=== PATIENT | female | born 1985 | race Caucasian/White ===

== ENCOUNTER 2017-02-14 11:19 | Emergency (ER) | payer MEDICAID ==
[2017-02-14] MEDS ORDERED: Ondansetron 4 MG/2 ML SDV IVPUSH ONE (11:40)
[2017-02-14] MEDS ORDERED: HYDROmorphone 0.5 MG/0.5 ML Syringe IVPUSH ONE (11:40)
[2017-02-14] MEDS ORDERED: Sodium Chloride 0.9% 1,000 ML IV SCH (11:45)
--- NOTE | 2017-02-14 12:27 | EDM.PDOC ---
ED HPI GENERAL MEDICAL PROBLEM - General Chief Complaint: Flank Pain Stated Complaint: ABDOMINAL PAIN Time Seen by Provider: 02/14/17 11:35 Source of Information: Reports: Patient History Limitations: Reports: No Limitations - History of Present Illness INITIAL COMMENTS - FREE TEXT/NARRATIVE: pt arrived with rt flank pain. She has been having pain and doing some vomiting. 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: , Spontaneous Neurological History: Reports: Migraines Psychiatric History: Reports: Depression - Past Surgical History HEENT Surgical History: Reports: Tonsillectomy Female Surgical History: Reports: Tubal Ligation Social & Family History - Tobacco Use Smoking Status *Q: Never Smoker Second Hand Smoke Exposure: No - Caffeine Use Caffeine Use: Reports: None - Recreational Drug Use Recreational Drug Use: No ED ROS GENERAL - Review of Systems Review Of Systems: See Below Constitutional: Reports: No Symptoms HEENT: Reports: No Symptoms Respiratory: Reports: No Symptoms Cardiovascular: Reports: No Symptoms Endocrine: Reports: No Symptoms GI/Abdominal: Reports: Abdominal Pain, Other (pt has pain in rt flank and rt lower abdoman. ) : Reports: Flank Pain Musculoskeletal: Reports: No Symptoms Skin: Reports: No Symptoms ED EXAM, GI/ABD - Physical Exam Exam: See Below Text/Narrative:: pt arrived with rt sided pain in the rt flank and rt lower abdoman. Exam Limited By: No Limitations General Appearance: Alert, Anxious Eyes: Bilateral: Normal Appearance, EOMI Ears: Normal TMs Nose: Normal Inspection Throat/Mouth: Normal Inspection Head: Atraumatic Neck: Normal Inspection Respiratory/Chest: No Respiratory Distress Cardiovascular: Regular Rate, Rhythm GI/Abdominal: Soft, Tenderness, Other (pt is tender in the rt flank area and rt lower abdoman, ) (Female) Exam: Deferred Rectal (Female) Exam: Deferred Back Exam: Normal Inspection Extremities: Normal Inspection Neurological: Alert, Oriented, Normal Cognition Course - Vital Signs Last Recorded V/S: Last Vital Signs Temp 36.4 C 02/14/17 13:51 Pulse 94 02/14/17 13:51 Resp 14 02/14/17 13:51 BP 157/92 H 02/14/17 13:51 Pulse Ox 97 02/14/17 13:51 - Orders/Labs/Meds Orders: Active Orders 24 hr Category Date Time Status Acetaminophen/HYDROcodone [[place] 325-5 MG] Med 02/14/17 14:00 Once 1 tab PO ONETIME ONE Iopamidol [Isovue-300 (61%)] Med 02/14/17 12:38 Active 123 ml IV . DIRECTED PRN Sodium Chloride 0.9% [Normal Saline] 1,000 ml Med 02/14/17 11:45 Active IV ASDIRECTED Sodium Chloride 0.9% [Normal Saline] 82 ml Med 02/14/17 12:45 Active IV ASDIRECTED Medication Orders Hydrocodone Bitart/Acetaminophen ([place] 325-5 Mg) 1 tab PO ONETIME ONE Stop: 02/14/17 14:01 Sodium Chloride (Normal Saline) 1,000 mls @ 999 mls/hr IV ASDIRECTED SAMANTHA Last Admin: 02/14/17 12:38 Dose: 999 mls/hr Sodium Chloride (Normal Saline) 82 mls @ 3.5 mls/sec IV ASDIRECTED SAMANTHA Last Admin: 02/14/17 12:51 Dose: 3.5 mls/sec Iopamidol (Isovue-300 (61%)) 123 ml IV . DIRECTED PRN PRN Reason: RADIOLOGY EXAM Stop: 02/15/17 12:39 Last Admin: 02/14/17 12:51 Dose: 123 ml Labs: Laboratory Tests 02/14/17 02/14/17 02/14/17 Range/Units 11:45 11:45 12:19 WBC 6.5 (4.5-11.0) K/uL RBC 5.21 (3.30-5.50) M/uL Hgb 15.0 (12.0-15.0) g/dL Hct 42.8 (36.0-48.0) % MCV 82 (80-98) fL MCH 29 (27-31) pg MCHC 35 (32-36) % Plt Count 238 (150-400) K/uL Neut % (Auto) 75 H (36-66) % Lymph % (Auto) 19 L (24-44) % [place] % (Auto) 5 (2-6) % Eos % (Auto) 1 L (2-4) % Baso % (Auto) 0 (0-1) % Sodium 141 (140-148) mmol/L Potassium 3.7 (3.6-5.2) mmol/L Chloride 109 H (100-108) mmol/L Carbon Dioxide 20 L (21-32) mmol/L Anion Gap 15.7 H (5.0-14.0) mmol/L BUN 8 (7-18) mg/dL Creatinine 0.8 (0.6-1.0) mg/dL Est Cr Clr Drug Dosing 92.53 mL/min Estimated GFR (MDRD) > 60 (>60) Glucose 94 (74-106) mg/dL Calcium 8.8 (8.5-10.1) mg/dL Total Bilirubin 0.4 (0.2-1.0) mg/dL AST 11 L (15-37) U/L ALT 16 (12-78) U/L Alkaline Phosphatase 73 (46-116) U/L C-Reactive Protein (0.0-0.3) mg/dL Total Protein 7.7 (6.4-8.2) g/dL Albumin 4.1 (3.4-5.0) g/dL Globulin 3.6 H (2.3-3.5) g/dL Albumin/Globulin Ratio 1.1 L (1.2-2.2) Urine Color Yellow Urine Appearance Slightly cloudy Urine pH 6.5 (4.5-8.0) Ur Specific [place] 1.015 (1.008-1.030) Urine Protein Negative (NEGATIVE) mg/dL Urine Glucose (UA) Normal (NEGATIVE) mg/dL Urine Ketones 50 H (NEGATIVE) mg/dL Urine Occult Blood Large (NEGATIVE) Urine Nitrite Negative (NEGATIVE) Urine Bilirubin Negative (NEGATIVE) Urine Urobilinogen 1 (NORMAL) mg/dL Ur Leukocyte Esterase Large (NEGATIVE) Urine RBC 10-20 H (0-5) Urine WBC 10-20 H (0-5) Ur Epithelial Cells Few Amorphous Sediment Not seen Urine Bacteria Not seen Urine Mucus Rare 02/14/17 Range/Units 12:25 WBC (4.5-11.0) K/uL RBC (3.30-5.50) M/uL Hgb (12.0-15.0) g/dL Hct (36.0-48.0) % MCV (80-98) fL MCH (27-31) pg MCHC (32-36) % Plt Count (150-400) K/uL Neut % (Auto) (36-66) % Lymph % (Auto) (24-44) % [place] % (Auto) (2-6) % Eos % (Auto) (2-4) % Baso % (Auto) (0-1) % Sodium (140-148) mmol/L Potassium (3.6-5.2) mmol/L Chloride (100-108) mmol/L Carbon Dioxide (21-32) mmol/L Anion Gap (5.0-14.0) mmol/L BUN (7-18) mg/dL Creatinine (0.6-1.0) mg/dL Est Cr Clr Drug Dosing mL/min Estimated GFR (MDRD) (>60) Glucose (74-106) mg/dL Calcium (8.5-10.1) mg/dL Total Bilirubin (0.2-1.0) mg/dL AST (15-37) U/L ALT (12-78) U/L Alkaline Phosphatase (46-116) U/L C-Reactive Protein 0.32 H (0.0-0.3) mg/dL Total Protein (6.4-8.2) g/dL Albumin (3.4-5.0) g/dL Globulin (2.3-3.5) g/dL Albumin/Globulin Ratio (1.2-2.2) Urine Color Urine Appearance Urine pH (4.5-8.0) Ur Specific [place] (1.008-1.030) Urine Protein (NEGATIVE) mg/dL Urine Glucose (UA) (NEGATIVE) mg/dL Urine Ketones (NEGATIVE) mg/dL Urine Occult Blood (NEGATIVE) Urine Nitrite (NEGATIVE) Urine Bilirubin (NEGATIVE) Urine Urobilinogen (NORMAL) mg/dL Ur Leukocyte Esterase (NEGATIVE) Urine RBC (0-5) Urine WBC (0-5) Ur Epithelial Cells Amorphous Sediment Urine Bacteria Urine Mucus Meds: Medications Generic Name Dose Route Start Last Admin Trade Name Freq PRN Reason Stop Dose Admin Hydrocodone Bitart/Acetaminophen 1 tab 02/14/17 14:00 [place] 325-5 Mg PO 02/14/17 14:01 ONETIME ONE Sodium Chloride 1,000 mls @ 999 mls/hr 02/14/17 11:45 02/14/17 12:38 Normal Saline IV 999 mls/hr ASDIRECTED SAMANTHA Administration Sodium Chloride 82 mls @ 3.5 mls/sec 02/14/17 12:45 02/14/17 12:51 Normal Saline IV 3.5 mls/sec ASDIRECTED SAMANTHA Administration Iopamidol 123 ml 02/14/17 12:38 02/14/17 12:51 Isovue-300 (61%) IV 02/15/17 12:39 123 ml . DIRECTED PRN Administration RADIOLOGY EXAM Discontinued Medications Generic Name Dose Route Start Last Admin Trade Name Freq PRN Reason Stop Dose Admin Hydromorphone HCl 0.5 mg 02/14/17 11:40 02/14/17 12:42 Dilaudid IVPUSH 02/14/17 11:41 0.5 mg ONETIME ONE Administration Ondansetron HCl 4 mg 02/14/17 11:40 02/14/17 12:40 Zofran IVPUSH 02/14/17 11:41 4 mg ONETIME ONE Administration - Re-Assessments/Exams Free Text/Narrative Re-Assessment/Exam: 02/14/17 14:04 Pt has a fair number of wbcs and rbcs in her urine but very little bacteria. A culture was set up. She was given a liter of fluid. She had a cat scan of the abdoman which did not show any hydro or stones present. Her gb area looked normal. She had a 2.6 cm cyst on the ovary and a fair amount of free fluid in the pelvis. Departure - Departure Time of Disposition: 14:06 Disposition: Home, Self-Care 01 Condition: Fair Clinical Impression: Ovarian cyst, Free fluid in pelvis - Discharge Information Forms: ED Department Discharge Care Plan Goals: appt with Dr Cadena in 4-5 days, norco 5/325 q6h as needed for pain, motrin 600mg tid. as needed for pain, Pt will be notifed of the urine culture results. - My Orders Last 24 Hours: My Active Orders 02/14/17 11:45 Sodium Chloride 0.9% [Normal Saline] 1,000 ml IV ASDIRECTED 02/14/17 12:38 Iopamidol [Isovue-300 (61%)] 123 ml IV . DIRECTED PRN 02/14/17 12:45 Sodium Chloride 0.9% [Normal Saline] 82 ml IV ASDIRECTED 02/14/17 14:00 Acetaminophen/HYDROcodone [[place] 325-5 MG] 1 tab PO ONETIME ONE - Assessment/Plan Last 24 Hours: My Active Orders 02/14/17 11:45 Sodium Chloride 0.9% [Normal Saline] 1,000 ml IV ASDIRECTED 02/14/17 12:38 Iopamidol [Isovue-300 (61%)] 123 ml IV . DIRECTED PRN 02/14/17 12:45 Sodium Chloride 0.9% [Normal Saline] 82 ml IV ASDIRECTED 02/14/17 14:00 Acetaminophen/HYDROcodone [[place] 325-5 MG] 1 tab PO ONETIME ONE
[2017-02-14] MEDS ORDERED: Iopamidol 612 MG/ML 150 ML Bottle IV PRN (12:38)
--- NOTE | 2017-02-14 13:49 | CT ---
CT abdomen and pelvis. Total DLP 899. Indication: Pain in left flank. Findings: Lung bases are clear. Liver within normal limits. Gallbladder within normal limits. [place] s within normal limits. Bilateral adrenal glands are within normal limits. Spleen within normal limi ts. Nonobstructing stone right kidney. No hydronephrosis right kidney. No hydronephrosis left kidney . Normal enhancement of the left kidney. Trace free pelvic fluid. 2.6 cm cyst right ovary. Sigmoid d iverticuli without evidence for acute diverticulitis. Normal appendix. Terminal ileum within normal limits. No evidence for aneurysm of the aorta. Pars defects at L5. No acute osseous [place]. Impression: 1. Fluid within the pelvis which may be physiologic due to recent ovulation. Cyst within the right o vary up to 2.6 cm. 2. Nonobstructing right renal stone.
[2017-02-14 13:52] VITALS: BP 157/92
[2017-02-14] MEDS ORDERED: Acetaminophen/HYDROcodone 325-5 MG Tab PO ONE (14:00)
== END 2017-02-14 14:14 | disposition home or self-care (01) ==
LOC: JP.ED 11:19
DX: N83.201 Unspecified ovarian cyst, right side (principal); G43.909 Migraine, unspecified, not intractable, without status migrainosus; Z98.51 Tubal ligation status; Z98.890 Other specified postprocedural states; Z79.899 Other long term (current) drug therapy; Z88.5 Allergy status to narcotic agent
CPT/HCPCS: 36415; 74177; 80053; 81001; 85025; 86140; 87086; 96361; 96374; 96375; 99284; A9270; J1170; J2405; J7030; J7040

== ENCOUNTER 2017-03-04 06:41 | Day surgery (SDC) | payer MEDICAID ==
[2017-03-04] MEDS ORDERED: Bupivacaine 0.5% 50 ML MDV ONE (06:46)
[2017-03-04] MEDS ORDERED: Lidocaine 1% with EPINEPHrine 1:100,000 50 ML MDV ONE (06:46)
[2017-03-04] MEDS ORDERED: Dextrose 5%-Lactated Ringers 1,000 ML IV SCH (07:15)
[2017-03-04] MEDS ORDERED: cefOXitin 2 GM in Sodium Chloride 0.9% 50 ML IV ONE (08:15)
[2017-03-04] MEDS ORDERED: fentaNYL 250 MCG/5 ML SDV ONE (09:06)
[2017-03-04] MEDS ORDERED: Neostigmine Methylsulfate 1 MG/ML 5 ML Syringe ONE (09:07)
[2017-03-04] MEDS ORDERED: Ondansetron 4 MG/2 ML SDV ONE (09:07)
[2017-03-04] MEDS ORDERED: Rocuronium 50 MG/5 ML Vial ONE (09:07)
[2017-03-04] MEDS ORDERED: Propofol 200 MG/20 ML SDV ONE (09:07)
[2017-03-04] MEDS ORDERED: Dexamethasone 4 MG/ML SDV ONE (09:07)
[2017-03-04] MEDS ORDERED: Succinylcholine/Normal Saline 200 MG/10 ML Syringe ONE (09:07)
[2017-03-04] MEDS ORDERED: fentaNYL 100 MCG/2 ML SDV ONE ×2 (10:15→10:49)
[2017-03-04] MEDS ORDERED: Ondansetron 4 MG/2 ML SDV IVPUSH PRN (10:44)
[2017-03-04] MEDS ORDERED: hydrOXYzine HCl 100 MG/2 ML SDV IM PRN (10:44)
[2017-03-04] MEDS ORDERED: HYDROmorphone/Normal Saline 15 MG/30 ML PCA IV PRN (10:52)
[2017-03-04] MEDS ORDERED: hydrOXYzine HCl 100 MG/2 ML SDV IM ONE (10:55)
[2017-03-04] MEDS: D5 1/2 NS w/ 20 mEq/L KCl 1,000 ML IV SCH ×2 (12:08→20:14)
[2017-03-04] MEDS ORDERED: diphenhydrAMINE 50 MG/ML SDV IVPUSH PRN (12:17)
[2017-03-04] MEDS ORDERED: Ketorolac 60 MG/2 ML SDV IM ONE (12:22)
[2017-03-04] MEDS: Ketorolac 30 MG/ML SDV IM SCH (17:53)
[2017-03-04] MEDS: Topiramate 100 MG Tab PO SCH (20:48)
[2017-03-04] MEDS: Acetaminophen/HYDROcodone 325-5 MG Tab PO PRN (20:49)
[2017-03-04] MEDS ORDERED: buPROPion 150 MG Tab.SR PO SCH (21:00)
[2017-03-04] MEDS ORDERED: buPROPion 150 MG Tab.ER PO SCH (21:00)
[2017-03-05] MEDS: Ketorolac 30 MG/ML SDV IM SCH ×2 (00:30→05:16)
[2017-03-05] MEDS: Acetaminophen/HYDROcodone 325-5 MG Tab PO PRN ×2 (02:29→06:36)
[2017-03-05] MEDS: D5 1/2 NS w/ 20 mEq/L KCl 1,000 ML IV SCH (04:23)
[2017-03-05 07:22] VITALS: BP 136/73
[2017-03-05] MEDS ORDERED: buPROPion 150 MG Tab.SR PO SCH (09:00)
[2017-03-05] MEDS ORDERED: buPROPion 150 MG Tab.ER PO SCH (09:00)
[2017-03-05] MEDS: Topiramate 100 MG Tab PO SCH (09:21)
--- NOTE | 2017-03-06 08:23 | DISCH ---
FINAL DIAGNOSIS: Biliary dyskinesia. SECONDARY DIAGNOSES: History of depression and anxiety, history of posttraumatic stress disorder, and history of alcohol abuse. OPERATIVE PROCEDURE: This was done on 03/04, laparoscopic cholecystectomy. SUMMARY: This is a 31-year-old female presenting with recurrent biliary colic. Workup showed an ejection fraction of 19%, had a CCK-stimulated HIDA scan with reproduction of the symptoms as well, and therefore the patient underwent a laparoscopic cholecystectomy on 03/04, which was apparently an unremarkable procedure. Postoperatively, she is tolerating the [place] satisfactorily for pain and will be discharged home today. She will be following with Dr. Ackerman in [facility] on 03/14. DISCHARGE MEDICATIONS: Include her home medications plus [place] 5/325 mg 1 to 2 tabs q.4 hours p.r.n. pain, #40. She was also instructed that she can also take ibuprofen 400 to 600 mg q.6 hours p.r.n. in addition to or instead of the [place] .
--- NOTE | 2017-03-07 08:58 | OR ---
DATE OF PROCEDURE: 03/04/2017 PREOPERATIVE DIAGNOSIS: Chronic cholecystitis with biliary dyskinesia. POSTOPERATIVE DIAGNOSIS: Chronic cholecystitis with biliary dyskinesia. PROCEDURE: Laparoscopic cholecystectomy. SURGEON: Rubén Ackerman M.D. ANESTHESIA: General endotracheal. INDICATION: This is a 31-year-old white female who complains of right upper quadrant abdominal pain which radiates into her right flank and her back. This is associated with nausea and occasionally vomiting. Food makes it worse. She reports a low-grade fever. She denies light stool, dark urine or jaundice. Prior abdominal surgery consists of a bilateral tubal ligation. She had a CT scan of her abdomen, which was unrevealing. A CCK- stimulated HIDA scan was abnormal with an ejection fraction only 19% consist with chronic cholecystitis and biliary dyskinesia. She is admitted for a laparoscopic cholecystectomy. Liver function studies are all right. I counseled her for surgery and she gave her informed consent to proceed. DESCRIPTION OF PROCEDURE: After adequate general endotracheal anesthesia was obtained, the patient's abdomen was prepped and draped in the usual sterile fashion. The leg compression stockings were in place and used during the entire procedure. Time-out was held. An infraumbilical semicircular incision was made. Under direct vision, a 12 mm port was introduced in the abdomen through this incision. Using the Optiview technique, the camera was introduced into the abdomen and the abdomen was insufflated to a pressure of 15 mmHg with carbon dioxide. No evidence of intraabdominal injury was seen. Under direct vision, a 12 mm port was placed in the epigastrium and a 5 mm port was placed in the right lower quadrant. The gallbladder was grasped and elevated. Some adhesions were dissected free from it. The cystic artery and duct were dissected free. They were then each separately clipped up on the gallbladder and three times proximally and then divided between the clips. The gallbladder was then dissected free from the gallbladder bed. It was placed in a sample retrieval bag and elevated up through the anterior abdominal wall via the epigastric port site. It was delivered from the field. It was cultured off the field. It was noted to contain no stones as expected. The epigastric port was reintroduced back into the abdomen. The gallbladder bed was irrigated and suctioned dry. Hemostasis was obtained with electrocautery. The fascial closure device was used to place an 0 Vicryl stitch in the epigastric fascial defect. The infraumbilical port was removed with an interrupted stitch of 0 Vicryl used to close this fascial defect. We evacuated as much CO2 as we could from the abdomen via the 5 mm port site in the right lower quadrant and then this port was removed. Lidocaine 1% with epinephrine in a 50:50 mix with 0.5% Marcaine was infiltrated about all incisions. 4-0 Vicryl using a subcuticular stitch was placed to approximate the incisions. Dermabond was applied. The anesthesia was reversed. She was extubated and brought to recovery room in good condition. Rubén Ackerman MD /[id number] MTDD
== END 2017-03-05 11:00 | disposition home or self-care (01) ==
LOC: JP.SDS 06:41 → JP.MS 11:45 → JP.SDS 03-05 11:00
PROVIDERS: ATTEND Surgery
DX: K81.1 Chronic cholecystitis (principal); F41.9 Anxiety disorder, unspecified; E66.9 Obesity, unspecified; F33.1 Major depressive disorder, recurrent, moderate; Z98.890 Other specified postprocedural states; Z88.8 Allergy status to other drugs, medicaments and biological substances; Z79.899 Other long term (current) drug therapy; Z98.51 Tubal ligation status
CPT/HCPCS: 36415; 47562; 80076; 85027; 87070; 87075; 87205; A9270; J0694; J1100; J1170; J1200; J1885; J2405; J2704; J3010; J3410; J3480; J7042; J7050; J7120; 88304

== ENCOUNTER 2017-05-10 20:35 | Emergency (ER) | payer MEDICAID ==
[2017-05-10 20:57] VITALS: BP 141/79
[2017-05-10] MEDS ORDERED: Ondansetron 4 MG/2 ML SDV IVPUSH ONE (21:24)
[2017-05-10] MEDS ORDERED: Ketorolac 30 MG/ML SDV IVPUSH ONE (21:24)
[2017-05-10] MEDS ORDERED: Sodium Chloride 0.9% 1,000 ML IV SCH (21:30)
--- NOTE | 2017-05-10 21:50 | EDM.PDOC ---
ED HPI GENERAL MEDICAL PROBLEM - General Chief Complaint: Genitourinary Problem Stated Complaint: BACK PAIN / FEVER / BLOOD IN URINE Time Seen by Provider: 05/10/17 21:07 Source of Information: Reports: Patient, Old Records History Limitations: Reports: No Limitations - History of Present Illness INITIAL COMMENTS - FREE TEXT/NARRATIVE: abdominal pain with bilateral flank pain; this is a 31 year old female present to ER for evaluation of symptoms. Reports had a CT scan on 02/14/17, urology appointment 05-31-17. Reports pain started about one and half months ago. denies any bladder or upper back pain. does have a hiatal hernia. Onset: Gradual (Reports it had symptoms for the past 1 month and 3 days.) Duration: Getting Worse Location: Reports: Generalized (Generalized not feeling well now with increased lower back pain.) Quality: Reports: Same as Previous Episode, Throbbing Severity: Severe (Rates pain at 8.5) Improves with: Reports: None Worsens with: Reports: None Context: Reports: Other (History of kidney stone.) Associated Symptoms: Reports: Fever/Chills, Loss of Appetite, Malaise, Nausea/ Vomiting flank pain Pain Score (Numeric/FACES): 8 - Related Data Allergies Allergy/AdvReac Type Severity Reaction Status Date / Time morphine Allergy Intermediate Hives Verified 05/10/17 20:55 citalopram [From Celexa] Allergy Cannot Verified 05/10/17 20:55 Remember escitalopram [From Lexapro] Allergy Cannot Verified 05/10/17 20:55 Remember sertraline [From Zoloft] Allergy Cannot Verified 05/10/17 20:55 Remember Home Meds: Home Meds Topiramate 100 mg PO BID 02/14/17 [History] buPROPion [Wellbutrin SR] 150 mg PO BEDTIME 03/04/17 [History] buPROPion [Wellbutrin SR] 300 mg PO DAILY 03/04/17 [History] Past Medical History HEENT History: Reports: None Gastrointestinal History: Reports: Other (See Below) Other Gastrointestinal History: Cholecystitis Genitourinary History: Reports: Renal Calculus [employer]IMMER History: Reports: , Spontaneous Neurological History: Reports: Migraines Psychiatric History: Reports: Anxiety, Depression, Mood Swings Endocrine/Metabolic History: Reports: Obesity/BMI 30+ - Infectious Disease History Infectious Disease History: Reports: Chicken Pox, Other (See Below) Other Infectious Disease History: Viral meningitis - Past Surgical History HEENT Surgical History: Reports: Tonsillectomy GI Surgical History: Reports: Cholecystectomy Female Surgical History: Reports: Tubal Ligation Social & Family History - Tobacco Use Smoking Status *Q: Never Smoker Second Hand Smoke Exposure: No - Caffeine Use Caffeine Use: Reports: None - Alcohol Use Days Per Week of Alcohol Use: 0 - Recreational Drug Use Recreational Drug Use: No ED ROS GENERAL - Review of Systems Review Of Systems: See Below Constitutional: Reports: Fever, Chills, Malaise, Fatigue, Decreased Appetite HEENT: Reports: No Symptoms Respiratory: Reports: No Symptoms Cardiovascular: Reports: No Symptoms Endocrine: Reports: No Symptoms GI/Abdominal: Reports: Decreased Appetite, Nausea : Reports: Flank Pain (Bilateral), Frequency, Hematuria (Reports hematuria since 04/06/17, has urology appointment on May 31, 2017), Pain, Urgency Musculoskeletal: Reports: Back Pain (Bilateral mid to low back pain) Skin: Reports: No Symptoms Neurological: Reports: No Symptoms Psychiatric: Reports: No Symptoms Hematologic/Lymphatic: Reports: No Symptoms Immunologic: Reports: No Symptoms ED EXAM, GI/ABD - Physical Exam Exam: See Below Exam Limited By: No Limitations General Appearance: Moderate Distress (sitting on chair, upper body stretched out on the stretcher.) Eyes: Bilateral: Normal Appearance Ears: Normal External Exam, Normal Canal, Hearing Grossly Normal, Normal TMs Nose: Normal Inspection, Normal Mucosa, No Blood, Nasal Swelling Throat/Mouth: Normal Inspection, Normal Lips, Normal Teeth, Normal Gums, Normal Oropharynx, Normal Voice, No Airway Compromise Head: Atraumatic, Normocephalic Neck: Normal Inspection, Supple, Non-Tender, Full Range of Motion Respiratory/Chest: No Respiratory Distress, Lungs Clear, Normal Breath Sounds, No Accessory Muscle Use, Chest Non-Tender Cardiovascular: Regular Rate, Rhythm, No Edema, No Gallop, No JVD, No Murmur, No Rub GI/Abdominal Exam: Normal Bowel Sounds, Soft, Non-Tender, No Organomegaly, No Distention, No Abnormal Bruit, No Mass (Female) Exam: Deferred Rectal (Female) Exam: Deferred Back Exam: Normal Inspection, Full Range of Motion, CVA Tenderness (R), CVA Tenderness (L) Extremities: Normal Inspection, Normal Range of Motion, Non-Tender, Normal Capillary Refill, No Pedal Edema Neurological: Alert, Oriented, Normal Cognition, Normal Gait, Normal Reflexes, No Motor/Sensory Deficits Psychiatric: Normal Affect, Normal Mood Skin Exam: Warm, Dry, Normal Color, No Rash Lymphatic: No Adenopathy Course - Vital Signs Last Recorded V/S: Last Vital Signs Temp 37.3 C 05/10/17 20:51 Pulse 113 H 05/10/17 20:51 Resp 16 05/10/17 20:51 BP 141/79 H 05/10/17 20:51 Pulse Ox 94 L 05/10/17 20:51 - Orders/Labs/Meds Orders: Active Orders 24 hr Category Date Time Status Kidney Stone Protocol [CT] Stat Exams 05/10/17 21:21 Taken Labs: Laboratory Tests 05/10/17 05/10/17 05/10/17 Range/Units 20:51 20:51 21:34 WBC 8.5 (4.5-11.0) K/uL RBC 4.81 (3.30-5.50) M/uL Hgb 14.2 (12.0-15.0) g/dL Hct 40.7 (36.0-48.0) % MCV 85 (80-98) fL MCH 30 (27-31) pg MCHC 35 (32-36) % Plt Count 268 (150-400) K/uL Neut % (Auto) 70 H (36-66) % Lymph % (Auto) 24 (24-44) % [place] % (Auto) 5 (2-6) % Eos % (Auto) 0 L (2-4) % Baso % (Auto) 0 (0-1) % Sodium (140-148) mmol/L Potassium (3.6-5.2) mmol/L Chloride (100-108) mmol/L Carbon Dioxide (21-32) mmol/L Anion Gap (5.0-14.0) mmol/L BUN (7-18) mg/dL Creatinine (0.6-1.0) mg/dL Est Cr Clr Drug Dosing Estimated GFR (MDRD) (>60) Glucose (74-106) mg/dL Calcium (8.5-10.1) mg/dL Total Bilirubin (0.2-1.0) mg/dL AST (15-37) U/L ALT (12-78) U/L Alkaline Phosphatase (46-116) U/L Total Protein (6.4-8.2) g/dL Albumin (3.4-5.0) g/dL Globulin (2.3-3.5) g/dL Albumin/Globulin Ratio (1.2-2.2) Urine Color Red Urine Appearance Slightly cloudy Urine pH 7.0 (4.5-8.0) Ur Specific [place] 1.015 (1.008-1.030) Urine Protein 30 H (NEGATIVE) mg/dL Urine Glucose (UA) Normal (NEGATIVE) mg/dL Urine Ketones 15 H (NEGATIVE) mg/dL Urine Occult Blood Large (NEGATIVE) Urine Nitrite Negative (NEGATIVE) Urine Bilirubin Negative (NEGATIVE) Urine Urobilinogen Normal (NORMAL) mg/dL Ur Leukocyte Esterase Small (NEGATIVE) Urine RBC Packed H (0-5) Urine WBC 10-20 H (0-5) Ur Epithelial Cells Rare Amorphous Sediment Not seen Urine Bacteria Not seen Urine Mucus Not seen Urine HCG, Qual Negative 05/10/17 Range/Units 21:34 WBC (4.5-11.0) K/uL RBC (3.30-5.50) M/uL Hgb (12.0-15.0) g/dL Hct (36.0-48.0) % MCV (80-98) fL MCH (27-31) pg MCHC (32-36) % Plt Count (150-400) K/uL Neut % (Auto) (36-66) % Lymph % (Auto) (24-44) % [place] % (Auto) (2-6) % Eos % (Auto) (2-4) % Baso % (Auto) (0-1) % Sodium 143 (140-148) mmol/L Potassium 3.8 (3.6-5.2) mmol/L Chloride 109 H (100-108) mmol/L Carbon Dioxide 24 (21-32) mmol/L Anion Gap 13.8 (5.0-14.0) mmol/L BUN 10 (7-18) mg/dL Creatinine 0.9 (0.6-1.0) mg/dL Est Cr Clr Drug Dosing TNP Estimated GFR (MDRD) > 60 (>60) Glucose 92 (74-106) mg/dL Calcium 8.7 (8.5-10.1) mg/dL Total Bilirubin 0.4 (0.2-1.0) mg/dL AST 12 L (15-37) U/L ALT 21 (12-78) U/L Alkaline Phosphatase 71 (46-116) U/L Total Protein 7.4 (6.4-8.2) g/dL Albumin 3.8 (3.4-5.0) g/dL Globulin 3.6 H (2.3-3.5) g/dL Albumin/Globulin Ratio 1.1 L (1.2-2.2) Urine Color Urine Appearance Urine pH (4.5-8.0) Ur Specific [place] (1.008-1.030) Urine Protein (NEGATIVE) mg/dL Urine Glucose (UA) (NEGATIVE) mg/dL Urine Ketones (NEGATIVE) mg/dL Urine Occult Blood (NEGATIVE) Urine Nitrite (NEGATIVE) Urine Bilirubin (NEGATIVE) Urine Urobilinogen (NORMAL) mg/dL Ur Leukocyte Esterase (NEGATIVE) Urine RBC (0-5) Urine WBC (0-5) Ur Epithelial Cells Amorphous Sediment Urine Bacteria Urine Mucus Urine HCG, Qual Meds: Medications Discontinued Medications Generic Name Dose Route Start Last Admin Trade Name Freq PRN Reason Stop Dose Admin Sodium Chloride 1,000 mls @ 999 mls/hr 05/10/17 21:30 05/10/17 21:36 Normal Saline IV 999 mls/hr ASDIRECTED SAMANTHA Administration Ketorolac Tromethamine 30 mg 05/10/17 21:24 05/10/17 21:32 Toradol IVPUSH 05/10/17 21:25 30 mg ONETIME ONE Administration Ondansetron HCl 4 mg 05/10/17 21:24 05/10/17 21:31 Zofran IVPUSH 05/10/17 21:25 4 mg ONETIME ONE Administration - Radiology Interpretation CT Results Date: 05/10/17 - Re-Assessments/Exams Free Text/Narrative Re-Assessment/Exam: 05/10/17 21:55 plan; IV fluids, IV rocephin, IV toradol 30 mg ivp, IV, zofran 4 mg iv, NS liter over one hour, -stone protocol as directed. 05/11/17 00:03 CT of the abdomen and pelvis without contrast; impression: 1 nonobstructing 10 x 4 x 7 mm stone in the right renal pelvis. 2. Status post cholecystectomy 3. sprays chronic L5 pars defect. Review the results with the patient. And given copy. Departure - Departure Time of Disposition: 23:08 Disposition: Home, Self-Care 01 Condition: Good Clinical Impression: UTI, Urinary tract infectious disease, Kidney stone - Discharge Information Instructions: Kidney Stones, [id number], Urinary Tract Infection, Adult Referrals: Sedrick Cadena MD [Primary Care Provider] - Forms: ED Department Discharge Care Plan Goals: Urinary Tract Infection Right Kidney stone -push fluids -rest -start tonight; Cipro 500 mg by mouth two times a day for 10 days -start tonight; Hydrocodone 5-325 mg one tablet every 4 to 6 hours as needed for pain -return to ER for any increase pain, fever, chills, nausea, vomiting, diarrhea, rash or not improved. Advise to call Primary Care Provider for recheck Urology appointment pending, May 31, 2017. Given a copy of CT report and reviewed with Mrs. Xavier, agrees with plan of care. - Problem List & Annotations (1) Kidney stone SNOMED Code(s): 84563203 Code(s): N20.0 - CALCULUS OF KIDNEY Status: Acute Priority: High (2) UTI, Urinary tract infectious disease SNOMED Code(s): 50695136 Code(s): N39.0 - URINARY TRACT INFECTION, SITE NOT SPECIFIED Status: Acute Priority: High - Problem List Review Problem List Initiated/Reviewed/Updated: Yes - My Orders Last 24 Hours: My Active Orders 05/10/17 21:21 Kidney Stone Protocol [CT] Stat - Assessment/Plan Last 24 Hours: My Active Orders 05/10/17 21:21 Kidney Stone Protocol [CT] Stat Plan: Urinary Tract Infection Right Kidney stone -push fluids -rest -start tonight; Cipro 500 mg by mouth two times a day for 10 days -start tonight; Hydrocodone 5-325 mg one tablet every 4 to 6 hours as needed for pain -return to ER for any increase pain, fever, chills, nausea, vomiting, diarrhea, rash or not improved. Advise to call Primary Care Provider for recheck Urology appointment pending, May 31, 2017. Given a copy of CT report and reviewed with Mrs. Xavier, agrees with plan of care.
== END 2017-05-10 23:08 | disposition home or self-care (01) ==
LOC: JP.ED 20:35
DX: N39.0 Urinary tract infection, site not specified (principal); N20.0 Calculus of kidney; Z88.5 Allergy status to narcotic agent; Z98.890 Other specified postprocedural states; E66.9 Obesity, unspecified; Z90.49 Acquired absence of other specified parts of digestive tract
CPT/HCPCS: 36415; 74176; 80053; 81001; 81025; 85025; 96361; 96374; 96375; 99284; J1885; J2405; J7040

== ENCOUNTER 2017-10-29 16:55 | Emergency (ER) | payer MEDICAID ==
[2017-10-29] MEDS ORDERED: methylPREDNISolone Sodium Succinate 125 MG/2 ML SDV IVPUSH ONE (17:59)
[2017-10-29] MEDS ORDERED: Sodium Chloride 0.9% 1,000 ML IV SCH (18:00)
[2017-10-29] MEDS ORDERED: Ibuprofen 600 MG Tab PO ONE (18:25)
--- NOTE | 2017-10-29 18:25 | EDM.PDOC ---
ED HPI GENERAL MEDICAL PROBLEM - General Chief Complaint: Allergic Reaction Stated Complaint: POSSIBLE ALLERGIC REACTION Time Seen by Provider: 10/29/17 17:20 Source of Information: Reports: Patient History Limitations: Reports: No Limitations - History of Present Illness INITIAL COMMENTS - FREE TEXT/NARRATIVE: 32-year-old female who was evaluated in the clinic yesterday for an allergic reaction to Topamax, the medication was stopped but she was told to return to the emergency room if she developed a sore throat. It does hurt to swallow today , her rash has worsened especially in the scalp and around her neck but she is not short of breath. She has some stiffness in her neck, no headache. Her temperature was 103 yesterday, 101.3 today. She has no cold symptoms, cough, shortness of breath, nausea vomiting, diarrhea, or joint pains. Onset: Gradual (Over the past several days) Severity: Moderate Associated Symptoms: Reports: Fever/Chills, Other. Denies: Chest Pain (Throat pain), Cough, Headaches, Shortness of Breath Neck Pain Score (Numeric/FACES): 9 - Related Data Allergies Allergy/AdvReac Type Severity Reaction Status Date / Time morphine Allergy Intermediate Hives Verified 10/29/17 17:12 citalopram [From Celexa] Allergy Cannot Verified 10/29/17 17:12 Remember escitalopram [From Lexapro] Allergy Cannot Verified 10/29/17 17:12 Remember sertraline [From Zoloft] Allergy Cannot Verified 10/29/17 17:12 Remember Home Meds: Home Meds buPROPion [Wellbutrin SR] 150 mg PO BEDTIME 03/04/17 [History] buPROPion [Wellbutrin SR] 300 mg PO DAILY 03/04/17 [History] Past Medical History HEENT History: Reports: None Gastrointestinal History: Reports: Other (See Below) Other Gastrointestinal History: Cholecystitis Genitourinary History: Reports: Renal Calculus [employer] History: Reports: , Spontaneous Other OB/BYN History: TUBAL Neurological History: Reports: Migraines Psychiatric History: Reports: Anxiety, Depression, Mood Swings Endocrine/Metabolic History: Reports: Obesity/BMI 30+ - Infectious Disease History Infectious Disease History: Reports: Chicken Pox, Other (See Below) Other Infectious Disease History: Viral meningitis - Past Surgical History HEENT Surgical History: Reports: Tonsillectomy GI Surgical History: Reports: Cholecystectomy Female Surgical History: Reports: Tubal Ligation Social & Family History - Tobacco Use Smoking Status *Q: Unknown Ever Smoked Second Hand Smoke Exposure: No - Caffeine Use Caffeine Use: Reports: None - Alcohol Use Days Per Week of Alcohol Use: 0 - Recreational Drug Use Recreational Drug Use: No ED ROS ALLERGIC REACTION - Review of Systems Review Of Systems: See Below Constitutional: Reports: Fever, Chills, Malaise HEENT: Reports: Throat Pain Respiratory: Denies: Shortness of Breath, Cough Cardiovascular: Denies: Chest Pain GI/Abdominal: Denies: Abdominal Pain, Nausea, Vomiting Musculoskeletal: Reports: Neck Pain Skin: Reports: Rash, Erythema (Especially on the scalp and face) Neurological: Reports: Paresthesia (Some tingling in her hands and feet). Denies: Headache, Numbness Psychiatric: Reports: Anxiety ED EXAM GENERAL NO PERIP PULSE - Physical Exam Exam: See Below Exam Limited By: No Limitations General Appearance: Alert, No Apparent Distress (Patient looks uncomfortable but she is not distressed) Eye Exam: Bilateral Eye: Normal Inspection Throat/Mouth: Other (Tonsils are absent, she does have mild erythema no exudate) Head: Atraumatic Neck: Supple. No: Lymphadenopathy (R), Lymphadenopathy (L) Respiratory/Chest: No Respiratory Distress, Lungs Clear Cardiovascular: Regular Rate, Rhythm Extremities: No: Pedal Edema Neurological: Alert, Oriented Skin Exam: Warm, Dry, Erythema (Patient has erythema of the scalp and face, no discrete papules or lesions) Course - Vital Signs Last Recorded V/S: Last Vital Signs Temp 100.1 F 10/29/17 19:00 Pulse 107 H 10/29/17 19:24 Resp 15 10/29/17 19:24 BP 99/51 L 10/29/17 19:24 Pulse Ox 93 L 10/29/17 19:24 - Orders/Labs/Meds Orders: Active Orders 24 hr Category Date Time Status CULTURE STREP A CONFIRMATION [] Stat Lab 10/29/17 17:41 Results STREP SCRN A RAPID W CULT CONF [] Stat Lab 10/29/17 17:41 Results Labs: Laboratory Tests 10/29/17 10/29/17 Range/Units 18:14 18:14 WBC 7.1 (4.5-11.0) K/uL RBC 5.02 (3.30-5.50) M/uL Hgb 14.4 (12.0-15.0) g/dL Hct 40.4 (36.0-48.0) % MCV 81 (80-98) fL MCH 29 (27-31) pg MCHC 36 (32-36) % Plt Count 132 L (150-400) K/uL Neut % (Auto) 79 H (36-66) % Lymph % (Auto) 13 L (24-44) % [place] % (Auto) 8 H (2-6) % Eos % (Auto) 0 L (2-4) % Baso % (Auto) 0 (0-1) % Sodium 138 L (140-148) mmol/L Potassium 3.6 (3.6-5.2) mmol/L Chloride 101 (100-108) mmol/L Carbon Dioxide 24 (21-32) mmol/L Anion Gap 16.6 H (5.0-14.0) mmol/L BUN 10 (7-18) mg/dL Creatinine 0.9 (0.6-1.0) mg/dL Est Cr Clr Drug Dosing 81.50 mL/min Estimated GFR (MDRD) > 60 (>60) Glucose 109 H (74-106) mg/dL Calcium 8.4 L (8.5-10.1) mg/dL Total Bilirubin 0.5 (0.2-1.0) mg/dL AST 34 D (15-37) U/L ALT 50 D (12-78) U/L Alkaline Phosphatase 72 (46-116) U/L Total Protein 7.0 (6.4-8.2) g/dL Albumin 3.9 (3.4-5.0) g/dL Globulin 3.1 (2.3-3.5) g/dL Albumin/Globulin Ratio 1.3 (1.2-2.2) Meds: Medications Discontinued Medications Generic Name Dose Route Start Last Admin Trade Name Freq PRN Reason Stop Dose Admin Sodium Chloride 1,000 mls @ 1,000 mls/hr 10/29/17 18:00 10/29/17 18:19 Normal Saline IV 1,000 mls/hr ASDIRECTED SAMANTHA Administration Ibuprofen 600 mg 10/29/17 18:25 10/29/17 18:31 Motrin PO 03/17/18 18:26 600 mg ONETIME ONE Administration Methylprednisolone Sodium Succinate 125 mg 10/29/17 17:59 18 18:32 Solu-Medrol IVPUSH 10/29/17 18:00 125 mg ONETIME ONE Administration - Re-Assessments/Exams Free Text/Narrative Re-Assessment/Exam: 10/29/17 17:59 Initially a rapid strep was obtained which was negative. An IV was then started and the patient was given fluids, IV Solu-Medrol, CBC and CMP were obtained. 10/29/17 19:22 White count was normal, CMP were reassuring. Patient was given 600 mg of oral ibuprofen and was feeling better after 45 minutes. Temperature was 100.1. Pulse was 105. She was discharged with instructions to recheck tomorrow if not improving satisfactorily and continue with Tylenol or ibuprofen for fever control. Departure - Departure Time of Disposition: 19:32 Disposition: Home, Self-Care 01 Condition: Good Clinical Impression: Rash Medication reaction Qualifiers: Encounter type: initial encounter Qualified Code(s): T88.7XXA - Unspecified adverse effect of drug or medicament, initial encounter - Discharge Information Instructions: Rash, Drug Allergy, [id number] Referrals: Chelsy Cadena CNM [Primary Care Provider] - Forms: ED Department Discharge Care Plan Goals: Continue with Tylenol or ibuprofen for fever control and return in the next 24- 48 hours if not improving satisfactorily. - My Orders Last 24 Hours: My Active Orders 10/29/17 17:41 CULTURE STREP A CONFIRMATION [RM] Stat STREP SCRN A RAPID W CULT CONF [RM] Stat - Assessment/Plan Last 24 Hours: My Active Orders 10/29/17 17:41 CULTURE STREP A CONFIRMATION [RM] Stat STREP SCRN A RAPID W CULT CONF [RM] Stat
[2017-10-29 19:24] VITALS: BP 99/51
== END 2017-10-29 19:32 | disposition home or self-care (01) ==
LOC: JP.ED 16:55
DX: L27.1 Localized skin eruption due to drugs and medicaments taken internally (principal); T42.6X5A Adverse effect of other antiepileptic and sedative-hypnotic drugs, initial encounter; F41.9 Anxiety disorder, unspecified; F32.9 Major depressive disorder, single episode, unspecified; Z88.5 Allergy status to narcotic agent; Z88.1 Allergy status to other antibiotic agents; Z88.8 Allergy status to other drugs, medicaments and biological substances
CPT/HCPCS: 36415; 80053; 85025; 87081; 87430; 96361; 96374; 99284; A9270; J2930; J7040

== ENCOUNTER 2018-02-22 00:55 | Emergency (ER) | payer MEDICAID ==
[2018-02-22 01:09] VITALS: BP 135/66
[2018-02-22] MEDS ORDERED: LORazepam 2 MG/ML SDV IVPUSH ONE (01:25)
--- NOTE | 2018-02-22 01:33 | EDM.PDOC ---
ED HPI GENERAL MEDICAL PROBLEM - General Chief Complaint: General Stated Complaint: MEDICAL VIA [facility] Time Seen by Provider: 02/22/18 01:13 Source of Information: Reports: Patient, Old Records, RN Notes Reviewed History Limitations: Reports: No Limitations - History of Present Illness INITIAL COMMENTS - FREE TEXT/NARRATIVE: EMS arrivalReceived ketorolac 15 mg IV prior to arrival as well as ondansetron 4 mg Chief complaint Pains all over History of present illness 32-year-old female with history of posttraumatic stress disorder and depression , and viral meningitis and migraines Did have a bit of a headache yesterday morning, it was milder during the day, appetite and activities normal during the day. Was at the [employer] with her when she came home about 10:30 PM started developing cramping pain in her calves. She thought might be a charley horse. However over the next few hours it spread to her thighs knees and to her arms and in particular her shoulders and neck. Finally the pain was so severe her called the ambulance. She tried ice packs warm packs without relief. She took a hydrocodone she had for migraine without relief No fever or chills No nausea or vomiting or abdominal pain No cough or cold symptoms or difficulty breathing No history of similar problem previously Recently started on sulfa antibiotics for skin infection of her chin which is almost resolved Treatments TRANSLATOR AND INTERPRETER: Reports: IV/IO Generalized Pain Score (Numeric/FACES): 10 - Related Data Allergies Allergy/AdvReac Type Severity Reaction Status Date / Time morphine Allergy Intermediate Hives Verified 02/22/18 00:59 citalopram [From Celexa] Allergy Cannot Verified 02/22/18 00:59 Remember escitalopram [From Lexapro] Allergy Cannot Verified 02/22/18 00:59 Remember sertraline [From Zoloft] Allergy Cannot Verified 02/22/18 00:59 Remember Home Meds: Home Meds buPROPion [Wellbutrin SR] 150 mg PO BEDTIME 03/04/17 [History] buPROPion [Wellbutrin SR] 300 mg PO DAILY 03/04/17 [History] Acetaminophen/HYDROcodone [[place] 325-5 MG] 1 tab PO Q8H PRN 02/22/18 [History] Cyclobenzaprine HCl 10 mg PO TID PRN #15 tablet 02/22/18 [Rx] Sulfamethoxazole/Trimethoprim [Sulfamethoxazole-Tmp Ds Tablet] 1 tab PO BID 07/02 [History] lamoTRIgine 1 tab PO DAILY 02/22/18 [History] Past Medical History HEENT History: Reports: None Gastrointestinal History: Reports: Other (See Below) Other Gastrointestinal History: Cholecystitis Genitourinary History: Reports: Renal Calculus MISSILE INSPECTOR History: Reports: , Spontaneous Other MISSILE INSPECTOR History: TUBAL Neurological History: Reports: Migraines Psychiatric History: Reports: Anxiety, Depression, Mood Swings Endocrine/Metabolic History: Reports: Obesity/BMI 30+ - Infectious Disease History Infectious Disease History: Reports: Chicken Pox Other Infectious Disease History: Viral meningitis - Past Surgical History HEENT Surgical History: Reports: Tonsillectomy GI Surgical History: Reports: Cholecystectomy Female Surgical History: Reports: Tubal Ligation Social & Family History - Tobacco Use Smoking Status *Q: Never Smoker Second Hand Smoke Exposure: No - Caffeine Use Caffeine Use: Reports: None - Alcohol Use Days Per Week of Alcohol Use: 0 - Recreational Drug Use Recreational Drug Use: No ED ROS GENERAL - Review of Systems Review Of Systems: See Below Constitutional: Reports: Malaise, Other (Aching all over). Denies: Fever, Chills, Decreased Appetite HEENT: Reports: No Symptoms Respiratory: Reports: No Symptoms Cardiovascular: Reports: No Symptoms GI/Abdominal: Reports: No Symptoms : Reports: No Symptoms Musculoskeletal: Reports: Muscle Pain (See history of present illness), Other ( Hurts to move left arm) Skin: Reports: No Symptoms. Denies: Rash Neurological: Reports: Headache, Numbness (Left arm), Difficulty Walking. Denies: Seizure, Syncope, Trouble Speaking Psychiatric: Reports: Anxiety Hematologic/Lymphatic: Reports: No Symptoms Immunologic: Reports: No Symptoms ED EXAM, GENERAL - Physical Exam Exam: See Below Exam Limited By: No Limitations General Appearance: Alert, Anxious, Other (Vital signs within normal limits except for mild elevation of pulse, she is very anxious and distressed). No: Moderate Distress Eye Exam: Bilateral Eye: EOMI, Normal Inspection Ears: Normal External Exam, Normal Canal, Hearing Grossly Normal, Normal TMs Nose: Normal Inspection, Normal Mucosa Throat/Mouth: Normal Inspection, Normal Lips, Normal Teeth, Normal Oropharynx Head: Atraumatic, Normocephalic Neck: Normal Inspection, Supple, Tender Lateral. No: Lymphadenopathy (R), Lymphadenopathy (L) Respiratory/Chest: Lungs Clear, No Accessory Muscle Use, Other (Some hyperventilation) Cardiovascular: Normal Peripheral Pulses, Regular Rate, Rhythm GI/Abdominal: Normal Bowel Sounds, Soft, Non-Tender, No Distention, No Mass Back Exam: Normal Inspection Extremities: Normal Inspection, No Pedal Edema, Normal Capillary Refill, Pedal Edema, Other (Generalized tenderness, mild) Neurological: Alert, Oriented, No Motor/Sensory Deficits Psychiatric: Anxious, Tearful Skin Exam: Warm, Dry, Intact, Normal Color, No Rash Lymphatic: No Adenopathy Course - Vital Signs Last Recorded V/S: Last Vital Signs Temp 37 C 02/22/18 01:08 Pulse 107 H 02/22/18 01:08 Resp 16 02/22/18 01:08 BP 135/66 02/22/18 01:08 Pulse Ox 99 02/22/18 01:08 - Orders/Labs/Meds Orders: Active Orders 24 hr Category Date Time Status UA W/MICROSCOPIC [URIN] Stat Lab 02/22/18 01:53 Ordered Labs: Laboratory Tests 02/22/18 02/22/18 02/22/18 Range/Units 01:35 01:35 01:35 WBC 12.7 H (4.5-11.0) K/uL RBC 4.77 (3.30-5.50) M/uL Hgb 13.9 (12.0-15.0) g/dL Hct 39.5 (36.0-48.0) % MCV 83 (80-98) fL MCH 29 (27-31) pg MCHC 35 (32-36) % Plt Count 201 (150-400) K/uL ABG Hemoglobin 14.2 (12.0-16.0) g/dL ABG Oxyhemoglobin 64.0 % ABG Carboxyhemoglobin 1.4 (0.0-1.6) % ABG Methemoglobin 0.8 % VBG pH 7.462 H (7.350-7.450) VBG pCO2 33.9 mm/Hg VBG pO2 32.8 mm/Hg VBG HCO3 23.8 mmol/L VBG Total CO2 20.9 mmol/L VBG O2 Saturation 65.4 VBG O2 Content 12.7 %vol VBG Base Excess 1.0 mm/L O2 Delivery Device Room air Sodium 139 L (140-148) mmol/L Potassium 3.6 (3.6-5.2) mmol/L Chloride 107 (100-108) mmol/L Carbon Dioxide 25 (21-32) mmol/L Anion Gap 10.6 (5.0-14.0) mmol/L BUN 10 (7-18) mg/dL Creatinine 0.8 (0.6-1.0) mg/dL Est Cr Clr Drug Dosing 91.68 mL/min Estimated GFR (MDRD) > 60 (>60) Glucose 115 H (74-106) mg/dL Calcium 8.5 (8.5-10.1) mg/dL Total Bilirubin 0.4 (0.2-1.0) mg/dL AST 14 L (15-37) U/L ALT 23 (12-78) U/L Alkaline Phosphatase 65 (46-116) U/L Creatine Kinase 79 (26-192) U/L Total Protein 6.2 L (6.4-8.2) g/dL Albumin 3.6 (3.4-5.0) g/dL Globulin 2.6 (2.3-3.5) g/dL Albumin/Globulin Ratio 1.4 (1.2-2.2) Urine Color Urine Appearance Urine pH (4.5-8.0) Ur Specific [place] (1.008-1.030) Urine Protein (NEGATIVE) mg/dL Urine Glucose (UA) (NEGATIVE) mg/dL Urine Ketones (NEGATIVE) mg/dL Urine Occult Blood (NEGATIVE) Urine Nitrite (NEGATIVE) Urine Bilirubin (NEGATIVE) Urine Urobilinogen (NORMAL) mg/dL Ur Leukocyte Esterase (NEGATIVE) Urine RBC (0-5) Urine WBC (0-5) Ur Epithelial Cells Amorphous Sediment Urine Bacteria Urine Mucus 02/22/18 Range/Units 01:53 WBC (4.5-11.0) K/uL RBC (3.30-5.50) M/uL Hgb (12.0-15.0) g/dL Hct (36.0-48.0) % MCV (80-98) fL MCH (27-31) pg MCHC (32-36) % Plt Count (150-400) K/uL ABG Hemoglobin (12.0-16.0) g/dL ABG Oxyhemoglobin % ABG Carboxyhemoglobin (0.0-1.6) % ABG Methemoglobin % VBG pH (7.350-7.450) VBG pCO2 mm/Hg VBG pO2 mm/Hg VBG HCO3 mmol/L VBG Total CO2 mmol/L VBG O2 Saturation VBG O2 Content %vol VBG Base Excess mm/L O2 Delivery Device Sodium (140-148) mmol/L Potassium (3.6-5.2) mmol/L Chloride (100-108) mmol/L Carbon Dioxide (21-32) mmol/L Anion Gap (5.0-14.0) mmol/L BUN (7-18) mg/dL Creatinine (0.6-1.0) mg/dL Est Cr Clr Drug Dosing mL/min Estimated GFR (MDRD) (>60) Glucose (74-106) mg/dL Calcium (8.5-10.1) mg/dL Total Bilirubin (0.2-1.0) mg/dL AST (15-37) U/L ALT (12-78) U/L Alkaline Phosphatase (46-116) U/L Creatine Kinase (26-192) U/L Total Protein (6.4-8.2) g/dL Albumin (3.4-5.0) g/dL Globulin (2.3-3.5) g/dL Albumin/Globulin Ratio (1.2-2.2) Urine Color Yellow Urine Appearance Clear Urine pH 7.0 (4.5-8.0) Ur Specific [place] 1.010 (1.008-1.030) Urine Protein Negative (NEGATIVE) mg/dL Urine Glucose (UA) Normal (NEGATIVE) mg/dL Urine Ketones Negative (NEGATIVE) mg/dL Urine Occult Blood Negative (NEGATIVE) Urine Nitrite Negative (NEGATIVE) Urine Bilirubin Negative (NEGATIVE) Urine Urobilinogen Normal (NORMAL) mg/dL Ur Leukocyte Esterase Negative (NEGATIVE) Urine RBC 0-5 (0-5) Urine WBC 0-5 (0-5) Ur Epithelial Cells Few Amorphous Sediment Not seen Urine Bacteria Rare Urine Mucus Not seen Meds: Medications Discontinued Medications Generic Name Dose Route Start Last Admin Trade Name Freq PRN Reason Stop Dose Admin Diphenhydramine HCl 50 mg 02/22/18 02:14 02/22/18 02:20 Benadryl IVPUSH 02/22/18 02:15 50 mg ONETIME ONE Administration Hydromorphone HCl 0.5 mg 02/22/18 02:13 02/22/18 02:20 Dilaudid IVPUSH 02/22/18 02:14 0.5 mg ONETIME ONE Administration Lorazepam 2 mg 02/22/18 01:25 02/22/18 01:38 Ativan IVPUSH 02/22/18 01:26 2 mg ONETIME ONE Administration - Re-Assessments/Exams Free Text/Narrative Re-Assessment/Exam: 02/22/18 01:33 32-year-old female presenting with generalized body aches, originating in her calves. Appears to be muscular pain, inability ambulatDifferential diagnosis includes myalgias systemic infection Considerable anxiety 02/22/18 02:09 Electrolytes including calcium and potassium are normal CBC normal Venous gases show some slight alkalosis suggesting hyperventilation No acidosis Urinalysis within normal, 02/22/18 02:14 Still uncomfortable and moaning although a little more calm nearly 40 minutes after lorazepam given Hydromorphone 0.5 mg and Benadryl 50 mg IV 02/22/18 02:59 More comfortable at this time No abnormal vital signs or findings Follow-up with primary care is crucial even if she feels better because she may have the onset of early illness Departure - Departure Time of Disposition: 02:59 Disposition: Home, Self-Care 01 Condition: Good Clinical Impression: Myalgia - Discharge Information Prescriptions: Cyclobenzaprine HCl 10 mg PO TID PRN #15 tablet PRN Reason: muscle aches or spasm Referrals: PCP,None [Primary Care Provider] - Forms: ED Department Discharge Additional Instructions: Fairly sudden onset of aches and pain and spasm tonight. Cause is unclear as to she senses affected so many different areas of her body. No evidence to suggest acute infection, and your blood test levels of electrolytes and blood count are normal. Even if you feel better, follow-up with your physician within one week is recommended to check you for other causes of muscle pain - My Orders Last 24 Hours: My Active Orders 02/22/18 01:53 UA W/MICROSCOPIC [URIN] Stat - Assessment/Plan Last 24 Hours: My Active Orders 02/22/18 01:53 UA W/MICROSCOPIC [URIN] Stat
[2018-02-22] MEDS ORDERED: HYDROmorphone 0.5 MG/0.5 ML Syringe IVPUSH ONE (02:13)
[2018-02-22] MEDS ORDERED: diphenhydrAMINE 50 MG/ML SDV IVPUSH ONE (02:14)
== END 2018-02-22 03:30 | disposition home or self-care (01) ==
LOC: JP.ED 00:55
DX: M79.1 Myalgia (principal); Z88.5 Allergy status to narcotic agent; Z88.8 Allergy status to other drugs, medicaments and biological substances; Z79.899 Other long term (current) drug therapy
CPT/HCPCS: 36415; 80053; 81001; 82550; 82803; 85027; 96374; 96375; 99284; J1170; J1200; J2060

== ENCOUNTER 2022-02-11 16:47 | Emergency (ER) | payer MEDICAID ==
[2022-02-11] MEDS ORDERED: Ibuprofen 600 MG Tab PO ONE (19:40)
[2022-02-11] MEDS ORDERED: LORazepam 0.5 MG Tab PO ONE (22:42)
[2022-02-12 01:34] VITALS: BP 121/90; PULSE 85
== END 2022-02-12 01:44 ==
LOC: JP.ED 16:47
DX: F32.A Depression, unspecified (principal); E66.9 Obesity, unspecified; Z20.822 Contact with and (suspected) exposure to COVID-19; Z88.5 Allergy status to narcotic agent; Z88.8 Allergy status to other drugs, medicaments and biological substances; Z68.41 Body mass index [BMI] 40.0-44.9, adult
CPT/HCPCS: 36415; 80048; 80305; 81001; 84443; 85025; 87635; 99281; 99285; A9270; U0002

== ENCOUNTER 2023-01-15 11:50 | Emergency (ER) | payer MEDICAID ==
[2023-01-15] MEDS ORDERED: Ondansetron 4 MG Tab.DIS PO ONE (14:03)
[2023-01-15] MEDS ORDERED: traMADol 50 MG Tab PO ONE (14:05)
[2023-01-15 14:20] LABS: MEAN CORPUSCULAR HEMOGLOBIN 28.6 pg (31.6-35.5); MEAN CORPUSCULAR HGB CONC 34.9 g/dL (31.6-35.5); MEAN CORPUSCULAR VOLUME 82.1 fL (81.4-99.0); RED BLOOD CELL COUNT 5.24 M/uL (3.77-5.24); WHITE BLOOD CELL COUNT,WBC 8.3 K/uL (3.2-11.0)
[2023-01-15 14:38] LABS: PROTHROMBIN TIME 9.9 sec (9.2-10.6)
[2023-01-15 14:49] LABS: A/G RATIO 1.1 (1.2-2.2); ALANINE AMINOTRANSFERASE,ALT 25 U/L (12-78); ALBUMIN 3.9 g/dL (3.4-5.0); ALKALINE PHOSPHATASE 90 U/L (46-116); ANION GAP 10.8 mmol/L (5.0-14.0); ASPARTATE AMNIOTRANSFERASE,AST 17 U/L (15-37); BILIRUBIN TOTAL 0.7 mg/dL (0.2-1.0); BLOOD UREA NITROGEN,BUN 8 mg/dL (7-18); CALCIUM 8.7 mg/dL (8.5-10.1); CARBON DIOXIDE,CO2 25 mmol/L (21-32); CHLORIDE,CL 105 mmol/L (100-108); CREATININE 0.7 mg/dL (0.6-1.0); EST CRCL DRUG DOSING (CG) 104.01 mL/min; ESTIMATED GFR 115 mL/min (>60); GLUCOSE RANDOM 96 mg/dL (74-106); PRO B-TYPE NATRIUR PEPT,BNPPRO 79 pg/mL (5-125); PROTEIN TOTAL,TP 7.4 g/dL (6.4-8.2); SODIUM,NA 141 mmol/L (140-148)
[2023-01-15 15:01] LABS: APPEARANCE,URINE SLIGHTLY CLOUDY (CLEAR); BILIRUBIN,URINE NEGATIVE (NEGATIVE); COLOR,URINE YELLOW (YELLOW); GLUCOSE,URINE NEGATIVE (NEGATIVE); KETONES,URINE TRACE mg/dL (NEGATIVE); LEUKOCYTE ESTERASE,URINE NEGATIVE (NEGATIVE); NITRITE,URINE NEGATIVE (NEGATIVE); OCCULT BLOOD,URINE SMALL (NEGATIVE); PH,URINE 5.5 (5.0-8.0); PROTEIN,URINE NEGATIVE (NEGATIVE); UROBILINOGEN,URINE 0.2 EU/dL (0.2-1.0)
[2023-01-15 15:11] LABS: AMORPHOUS SEDIMENT,URINE RARE; BACTERIA,URINE MODERATE; EPITHELIAL CELLS,URINE MODERATE; MUCUS,URINE FEW
[2023-01-15 17:29] VITALS: BP 131/77; PULSE 77
== END 2023-01-15 17:29 | disposition home or self-care (01) ==
LOC: JP.ED 11:50
DX: G44.209 Tension-type headache, unspecified, not intractable (principal); N39.0 Urinary tract infection, site not specified; E66.9 Obesity, unspecified; Z68.37 Body mass index [BMI] 37.0-37.9, adult; Z86.16 Personal history of COVID-19; Z88.5 Allergy status to narcotic agent; Z88.1 Allergy status to other antibiotic agents; Z88.8 Allergy status to other drugs, medicaments and biological substances; Z20.822 Contact with and (suspected) exposure to COVID-19
CPT/HCPCS: 36415; 70450; 71046; 80053; 81001; 81025; 83605; 83880; 84484; 85027; 85379; 85610; 87635; 93005; 99285; A9270; Q0162; U0002

== ENCOUNTER 2023-01-15 23:33 | Emergency (ER) | payer MEDICAID ==
[2023-01-15 23:37] VITALS: BP 150/73; PULSE 87
[2023-01-15] MEDS ORDERED: methylPREDNISolone Sodium Succinate 125 MG/2 ML SDV IM ONE (23:51)
[2023-01-15] MEDS ORDERED: methylPREDNISolone Sodium Succinate 125 MG/2 ML SDV IVPUSH ONE (23:58)
[2023-01-16] MEDS ORDERED: Ketorolac 30 MG/ML SDV IVPUSH ONE (00:29)
== END 2023-01-16 02:33 | disposition home or self-care (01) ==
LOC: JP.ED 23:33
DX: M79.10 Myalgia, unspecified site (principal); T36.8X5A Adverse effect of other systemic antibiotics, initial encounter; E66.9 Obesity, unspecified; Z86.16 Personal history of COVID-19; Z68.38 Body mass index [BMI] 38.0-38.9, adult
CPT/HCPCS: 87086; 96374; 96375; 99284; J1885; J2930